=== PATIENT | female | born 1980 ===

== ENCOUNTER 2017-11-03 15:49 | Emergency (ER) | payer SELFPAY ==
--- NOTE | 2017-11-03 16:38 | C.PDOC ---
History Of Present Illness 37 yo female w/o significant PMHx come in for evaluation of intermittent episodes of headache for past 2 weeks. Pt reports, headache is along the crown of head extends down to neck area, aching, intermittent. Pt sts, takes Naproxen at home without improvement. Otherwise, pt denies recent illness, fever, chills , visual changes, focal deficits, denies worse headache of life, CP, SOB, dyspnea, diaphoresis, palpitation, abd. pain, V/D, back pain, UTI sx, denies weakness, sensory or vascular deficits to B/L UEs. Ambulate to Ed for evaluation , not ikn any apparent distress Time Seen by Provider: 11/03/17 16:25 Chief Complaint (Nursing): Headache History Per: Patient Onset/Duration Of Symptoms: Intermittent Episodes Past Medical History Reviewed: Historical Data, Nursing Documentation, Vital Signs Vital Signs: Last Vital Signs Temp 98.2 F 11/03/17 16:10 Pulse 110 H 11/03/17 16:10 Resp 20 11/03/17 16:10 BP 152/91 H 11/03/17 16:10 Pulse Ox 100 11/03/17 17:46 - Medical History PMH: No Chronic Diseases Surgical History: No Surg Hx Family History: States: No Known Family Hx - Social History Hx Tobacco Use: No Hx Alcohol Use: No Hx Substance Use: No - Immunization History Hx Tetanus Toxoid Vaccination: No Hx Influenza Vaccination: No Hx Pneumococcal Vaccination: No Review Of Systems Except As Marked, All Systems Reviewed And Found Negative. Constitutional: Negative for: Fever, Chills, Malaise ENT: Negative for: Ear Discharge, Nose Discharge, Nose Congestion, Throat Pain, Throat Swelling Cardiovascular: Negative for: Chest Pain, Palpitations, Light Headedness Respiratory: Negative for: Cough, Shortness of Breath, Wheezing Gastrointestinal: Negative for: Nausea, Vomiting, Abdominal Pain, Diarrhea Genitourinary: Negative for: Dysuria, Incontinence Musculoskeletal: Negative for: Neck Pain Neurological: Positive for: Headache. Negative for: Weakness, Numbness, Altered Mental Status, Dizziness Physical Exam - Physical Exam Appears: Well, Non-toxic, No Acute Distress Skin: Normal Color, Warm, Dry, No Rash Head: Normacephalic Eye(s): bilateral: PERRL, EOMI Ear(s): Bilateral: Normal Nose: No Flaring, No Discharge Oral Mucosa: Moist, No Drooling Tongue: Normal Appearing Lips: Normal Appearing Throat: No Erythema, No Exudate, No Drooling Neck: Trachea Midline, Supple Cardiovascular: Rhythm Regular, No Murmur, No JVD Respiratory: No Decreased Breath Sounds, No Accessory Muscle Use, No Stridor, No Wheezing Gastrointestinal/Abdominal: Soft, No Tenderness, No Distention, No Guarding Back: No CVA Tenderness, No Vertebral Tenderness Extremity: Normal ROM, No Pedal Edema, No Deformity, No Swelling Neurological/Psych: Oriented x3, Normal Speech, Normal Motor, Normal Sensation, Normal Reflexes ED Course And Treatment - Laboratory Results Result Diagrams: 11/03/17 17:03 11/03/17 17:03 O2 Sat by Pulse Oximetry: 100 Pulse Ox Interpretation: Normal - CT Scan/US CT head w/o contrast Other Rad Studies (CT/US): Radiology Report Reviewed CT/US Interpretation: IMPRESSION: No intracranial mass, hemorrhage or evidence of acute infarct. Chronic sphenoid sinusitis. No additional abnormality. Progress Note: On re-evaluation, pt reports moderate improveemnt in [facility]. Pt is afebrile, hemodynamicaly stable. Non-toxic. Ambulatory in ED with baseline gait. [id number]%. Neck: Supple, (-) JVD, (-) carotid bruits B/L. Lungs: CTA B/L, BS equal B/L. Abd: benign, (-) guarding, (-) rebound. back: (- ) CVA tenderness. Neurologicaly intact. Blood work review, mild leukocytosis noted with left shift. UA- jose, preg (-). CT head w/o contrast- no acute findings. Pt has clinical findings c/w ehadache r/o sinus headache. Pt advised. ref. to f/u with PMD in 2 -3 days for re-eval. Return to ED if any worsening or new changes. Disposition Counseled Patient/Family Regarding: Studies Performed, Diagnosis, Need For Followup, Rx Given - Disposition Referrals: Andrea Shen MD [Non-Staff] - Disposition: HOME/ ROUTINE Disposition Time: 18:05 Condition: STABLE Additional Instructions: Encourage fluids Take medication as prescribed Follow up with PMD, Neurologist in 2-3 days for re-evaluation. return to ED if any worsening or new changes. Prescriptions: Acetaminophen/Butalbital/Caf [Fioricet] 1 tab PO TID PRN #10 tab PRN Reason: Headache Amoxicillin/Clavulanate [Augmentin 875 MG-125 MG] 1 tab PO BID #14 tab Prednisone [Deltasone] 40 mg PO DAILY #6 tablet Instructions: Sinus Headache (DC) Forms: [employer] (Comoran) Print Language: KYRGYZ - Clinical Impression Clinical Impression: Sinusitis, Headache
[2017-11-03] MEDS ORDERED: DiphenhydrAMINE 50 mg/ml Inj IVP STA (16:39)
[2017-11-03] MEDS ORDERED: DiphenhydrAMINE 50 mg/ml Inj ONE (17:05)
[2017-11-03 17:09] LABS: BASO # 0.1 K/uL (0.0-0.2); BASO % 0.4 % (0.0-2.0); EOS # 0.1 K/uL (0.0-0.7); EOS % 0.8 % (0.0-4.0); HEMOGLOBIN 14.3 g/dL (11.0-16.0); LYMPH # 2.6 K/uL (1.0-4.3); LYMPH % 17.8 % (20.0-40.0); MEAN CELL VOLUME 80.4 fL (81.0-99.0); MEAN CORPUSCULAR HEMOGLOBIN 27.4 pg (27.0-31.0); MEAN CORPUSCULAR HGB CONC 34.1 g/dL (33.0-37.0); MEAN PLATELET VOLUME 9.8 fL (7.2-11.7); MONO # 0.9 K/uL (0.0-0.8); MONO % 5.9 % (0.0-10.0); NEUT # 10.9 K/uL (1.8-7.0); NEUT % 75.1 % (50.0-75.0); NRBC % 0.1 % (0.0-2.0); RBC 5.21 Mil/uL (3.80-5.20); RED CELL DISTRIBUTION WIDTH 14.5 % (11.5-14.5); WHITE BLOOD COUNT 14.5 K/uL (4.8-10.8)
[2017-11-03 17:11] LABS: HCG,QUALITATIVE URINE NEGATIVE (NEGATIVE)
[2017-11-03 17:20] LABS: BLOOD UREA NITROGEN 12 mg/dL (7-17); CALCIUM 8.5 mg/dl (8.6-10.4); GFR AFRICAN-AMERICAN > 60; GFR NON-AFRICAN AMERICAN > 60; SQUAMOUS EPITHIAL 3 /hpf (0-5); URINE BILIRUBIN NEGATIVE (NEGATIVE); URINE BLOOD NEGATIVE (NEGATIVE); URINE CLARITY Hazy (Clear); URINE COLOR Amber (YELLOW); URINE GLUCOSE (UA) NORMAL (Normal); URINE LEUKOCYTE ESTERASE NEG Leu/uL (Negative); URINE PROTEIN 1+ mg/dL (NEGATIVE)
--- NOTE | 2017-11-03 17:40 | CT ---
PROCEDURE: CT HEAD WITHOUT CONTRAST. HISTORY: headache COMPARISON: None available. TECHNIQUE: Axial computed tomography images were obtained through the head/brain without intravenous contrast. Radiation dose: Total exam DLP = 857.99 mGy-cm. This CT exam was performed using one or more of the following dose reduction techniques: Automated exposure control, adjustment of the mA and/or kV according to patient size, and/or use of iterative reconstruction technique. FINDINGS: HEMORRHAGE: No intracranial hemorrhage. BRAIN: No mass effect or edema. No atrophy or chronic microvascular ischemic changes. VENTRICLES: Unremarkable. No hydrocephalus. CALVARIUM: Unremarkable. PARANASAL SINUSES: Chronic sphenoid sinusitis. MASTOID AIR CELLS: Unremarkable as visualized. No inflammatory changes. OTHER FINDINGS: None. IMPRESSION: No intracranial mass, hemorrhage or evidence of acute infarct. Chronic sphenoid sinusitis. No additional abnormality.
[2017-11-03] MEDS ORDERED: Amoxicillin-Clav 875-125 mg Tab PO STA (18:00)
[2017-11-03] MEDS ORDERED: Amoxicillin-Clav 875-125 mg Tab PO ONE (18:17)
[2017-11-03 18:37] VITALS: BP 127/80; PULSE 90; RESP 18; TEMP 97.9; O2SAT 98
== END 2017-11-03 18:39 | disposition home or self-care (01) ==
LOC: C.ER 15:49
DX: J32.9 Chronic sinusitis, unspecified (principal); R51 Headache
CPT/HCPCS: 70450; 80048; 81001; 84703; 85025; 96374; 96375; 99284; J1100; J1200; J1885; J2405

== ENCOUNTER 2018-01-03 09:50 | Emergency (ER) | payer OTHER ==
[2018-01-03 10:06] VITALS: BP 145/95; PULSE 82; RESP 16; TEMP 98.3; O2SAT 100
--- NOTE | 2018-01-03 10:18 | C.PDOC ---
History Of Present Illness 37 year old female presents to the emergency department with complaints of general ENT symptoms. Patient reports congested ears and nose, rhinorrhea, dry mouth, Patient denies fever. Time Seen by Provider: 01/03/18 10:07 Chief Complaint (Nursing): ENT Problem History Per: Patient History/Exam Limitations: None Current Symptoms Are (Timing): Still Present Quality (Ear): Other (congestion) Past Medical History Reviewed: Historical Data, Nursing Documentation, Vital Signs Vital Signs: Last Vital Signs Temp 98.3 F 01/03/18 10:03 Pulse 82 01/03/18 10:03 Resp 16 01/03/18 10:03 BP 145/95 H 01/03/18 10:03 Pulse Ox 100 01/03/18 13:40 - Medical History PMH: No Chronic Diseases Surgical History: No Surg Hx Family History: States: No Known Family Hx - Social History Hx Tobacco Use: No Hx Alcohol Use: No Hx Substance Use: No - Immunization History Hx Tetanus Toxoid Vaccination: No Hx Influenza Vaccination: No Hx Pneumococcal Vaccination: No Review Of Systems Except As Marked, All Systems Reviewed And Found Negative. Constitutional: Negative for: Fever ENT: Positive for: Nose Congestion, Other (ear congestion, mouth dry, tongue sores) Physical Exam - Physical Exam Appears: Non-toxic, No Acute Distress Skin: Warm, Dry Ear(s): Bilateral: Normal Oral Mucosa: Moist Throat: Normal, No Erythema, No Exudate Cardiovascular: Rhythm Regular Respiratory: Normal Breath Sounds Neurological/Psych: Oriented x3, Normal Speech, Normal Cognition ED Course And Treatment O2 Sat by Pulse Oximetry: 100 (RA) Pulse Ox Interpretation: Normal Medical Decision Making Medical Decision Making: suspsect seasonal allergies vs viral syndrome. - Plan: Claritin 10mg PO lungs cta pt speaking full sentences in nad. stable for dc Disposition - Disposition Referrals: [facility] [Outside] [facility] [Outside] [facility] [Outside] Disposition: HOME/ ROUTINE Disposition Time: 10:00 Condition: STABLE Additional Instructions: follow up with your doctor. return to er with worsening symptoms or concerns. Prescriptions: Fluticasone Propionate [Flonase] 1 spr NS DAILY #1 bottle Loratadine [Claritin] 10 mg PO DAILY PRN #10 tab PRN Reason: Allergy Symptoms Instructions: Seasonal Allergies in Adults, Cough, Runny Nose, and the Common Cold Forms: [employer] ([place]orese) Print Language: [place] - Clinical Impression Clinical Impression: Seasonal allergies - Scribe Statement The provider has reviewed the documentation as recorded by the Scribe (Rakesh Ramires) Provider Attestation: All medical record entries made by the Scribe were at my direction and personally dictated by me. I have reviewed the chart and agree that the record accurately reflects my personal performance of the history, physical exam, medical decision making, and the department course for this patient. I have also personally directed, reviewed, and agree with the discharge instructions and disposition.
== END 2018-01-03 10:44 | disposition home or self-care (01) ==
LOC: C.ER 09:50
DX: J30.2 Other seasonal allergic rhinitis (principal)

== ENCOUNTER 2018-03-19 18:47 | Emergency (ER) | payer OTHER ==
[2018-03-19 18:47] VITALS: BMI 36.5
[2018-03-19 18:59] VITALS: O2SAT 99
[2018-03-19] MEDS ORDERED: Sodium Chloride 0.9% 1,000 ML IV ONE (19:13)
[2018-03-19] MEDS ORDERED: Iohexol 240 (50 ml) PO ONE (19:14)
--- NOTE | 2018-03-19 19:16 | C.PDOC ---
History Of Present Illness 38 y/o female presents to ED for complaints of generalized abdominal pain that began a week ago. Denies , symptoms of dysuria, constipation, nausea, or vomiting. [facility] February 22, 2018. Chief Complaint (Nursing): Abdominal Pain History Per: Patient History/Exam Limitations: no limitations Onset/Duration Of Symptoms: Days (7) Current Symptoms Are (Timing): Still Present Location Of Pain/Discomfort: Diffuse Radiation Of Pain To:: None Quality Of Discomfort: Unable To Describe Associated Symptoms: denies: Fever, Chills, Nausea, Vomiting, Diarrhea, Urinary Symptoms Exacerbating Factors: None Alleviating Factors: None Last Bowel Movement: Today Recent travel outside of the [place]: No Abnormal Vaginal Bleeding: No Last Menstral Period: 02/22 Past Medical History Reviewed: Historical Data, Nursing Documentation, Vital Signs Vital Signs: Last Vital Signs Temp 99 F 03/19/18 18:56 Pulse 97 H 03/19/18 18:56 Resp 18 03/19/18 18:56 BP 151/89 H 03/19/18 18:56 Pulse Ox 99 03/19/18 22:07 - Medical History PMH: No Chronic Diseases Surgical History: No Surg Hx Family History: States: No Known Family Hx - Social History Hx Tobacco Use: No Hx Alcohol Use: No Hx Substance Use: No - Immunization History Hx Tetanus Toxoid Vaccination: No Hx Influenza Vaccination: No Hx Pneumococcal Vaccination: No Review Of Systems Constitutional: Negative for: Fever, Chills Cardiovascular: Negative for: Chest Pain Gastrointestinal: Positive for: Abdominal Pain. Negative for: Nausea, Vomiting , Diarrhea, Constipation Genitourinary: Negative for: Dysuria, Vaginal Bleeding Skin: Negative for: Rash Neurological: Negative for: Weakness, Numbness Physical Exam - Physical Exam Appears: Non-toxic, No Acute Distress Skin: Normal Color, Warm, Dry Head: Atraumatic, Normacephalic Eye(s): bilateral: Normal Inspection, PERRL Oral Mucosa: Moist Neck: Supple Chest: Symmetrical, No Tenderness Cardiovascular: Rhythm Regular, No Murmur Respiratory: Normal Breath Sounds, No Decreased Breath Sounds, No Rales, No Rhonchi, No Wheezing Gastrointestinal/Abdominal: Soft, Tenderness (Epigastric and mild in LLQ), No Distention, No Guarding, No Rebound Back: No CVA Tenderness Extremity: Normal ROM, No Tenderness, No Deformity Extremity: Bilateral: Atraumatic, Normal Color And Temperature, Normal ROM Neurological/Psych: Oriented x3, Normal Speech Gait: Steady ED Course And Treatment - Laboratory Results Result Diagrams: 03/19/18 19:35 03/19/18 19:35 O2 Sat by Pulse Oximetry: 99 (RA) Pulse Ox Interpretation: Normal - CT Scan/US CT Abdomen&Pelvis Other Rad Studies (CT/US): Read By Radiologist, Radiology Report Reviewed CT/US Interpretation: EXAM: CT Abdomen and Pelvis With Intravenous Contrast. CLINICAL HISTORY: 38 years old, female; Pain; Abdominal pain; Periumbilical; Additional info: Generalized abd pain. TECHNIQUE: Axial computed tomography images of the abdomen and pelvis with intravenous contrast. All CT. scans at this facility use at least one of these dose optimization techniques: automated exposure. control; mA and/or kV adjustment per patient size (includes targeted exams where dose is matched to. clinical indication); or iterative reconstruction. Coronal and sagittal reformatted images were created and reviewed. CONTRAST: 100 mL of visipaque 320 administered intravenously. COMPARISON: No relevant prior studies available. FINDINGS: Lung bases: Small subpleural nodule right middle lobe 4 mm.There is a diffuse decrease in hepatic. parenchymal density, consistent with fatty infiltration. ABDOMEN: Liver: There are no focal liver lesions present. Gallbladder and bile ducts: Unremarkable. No calcified stones. No ductal dilation. No significant. wall thickening. Pancreas: Unremarkable. No mass. No ductal dilation. Spleen: Unremarkable. No splenomegaly. Adrenals: Unremarkable. No mass. Kidneys and ureters: Unremarkable. No solid mass. No hydronephrosis. Stomach and bowel: Bowel loops appear within normal limits, no signs of wall thickening, mucosal. edema, or bowel distention. PELVIS: Appendix: A normal appendix is identified. Bladder: Unremarkable. No mass. Reproductive: Unremarkable as visualized. ABDOMEN and PELVIS: Intraperitoneal space: Unremarkable. No free air. No significant fluid collection. Bones/joints: No acute fracture. No dislocation. Soft tissues: Small fat-containing paraumbilical hernia is present. Vasculature: Unremarkable. No abdominal aortic aneurysm. Lymph nodes : Unremarkable. No enlarged lymph nodes. IMPRESSION: No acute findings or significant abnormalities are noted within the abdomen and pelvis. Small subpleural nodule right middle lobe 4 mm size. For lung nodules 4 mm or smaller in size, if the patient is considered high risk for lung cancer or. metastatic disease, follow-up CT in 12 months is recommended. If the patient is considered low risk. and under age 35, no follow-up is needed. Medical Decision Making Medical Decision Making: Administered Toradol and IV fluids. Ordered CT abd& Pelvis, blood work, and urinalysis. Disposition Counseled Patient/Family Regarding: Diagnosis - Disposition Referrals: [facility] [Outside] Disposition: HOME/ ROUTINE Disposition Time: 22:04 Condition: STABLE Prescriptions: Dicyclomine [Dicyclomine HCl] 10 mg PO Q6 #14 cap Instructions: Acute Abdomen (Belly Pain), Umbilical Hernia, Adult Forms: [employer] (Belizean), Gen Discharge Inst Greenlandic Print Language: NAMIBIAN - POA Present On Arrival: None - Clinical Impression Clinical Impression: Abdominal pain, Paraumbilical hernia - Scribe Statement The provider has reviewed the documentation as recorded by the Scribe Padmini Jeffers All medical record entries made by the Scribe were at my direction and personally dictated by me. I have reviewed the chart and agree that the record accurately reflects my personal performance of the history, physical exam, medical decision making, and the department course for this patient. I have also personally directed, reviewed, and agree with the discharge instructions and disposition.
[2018-03-19] MEDS ORDERED: Sodium Chloride 0.9% 1,000 ML ONE (19:38)
[2018-03-19] MEDS ORDERED: Iohexol 240 (50 ml) ONE (19:39)
[2018-03-19 19:47] LABS: BASO % 0.4 % (0.0-2.0); EOS # 0.1 K/uL (0.0-0.7); HEMOGLOBIN 13.5 g/dL (11.0-16.0); LYMPH # 2.1 K/uL (1.0-4.3); LYMPH % 20.5 % (20.0-40.0); MEAN CELL VOLUME 80.1 fL (81.0-99.0); MEAN CORPUSCULAR HEMOGLOBIN 27.6 pg (27.0-31.0); MEAN CORPUSCULAR HGB CONC 34.4 g/dL (33.0-37.0); MEAN PLATELET VOLUME 10.1 fL (7.2-11.7); MONO # 0.7 K/uL (0.0-0.8); MONO % 6.5 % (0.0-10.0); NEUT # 7.5 K/uL (1.8-7.0); NEUT % 71.6 % (50.0-75.0); NRBC % 0.5 % (0.0-2.0); RBC 4.89 Mil/uL (3.80-5.20); RED CELL DISTRIBUTION WIDTH 13.8 % (11.5-14.5); WHITE BLOOD COUNT 10.4 K/uL (4.8-10.8)
[2018-03-19 19:56] LABS: SQUAMOUS EPITHIAL 2 /hpf (0-5); URINE BILIRUBIN NEGATIVE (NEGATIVE); URINE BLOOD NEGATIVE (NEGATIVE); URINE CLARITY Clear (Clear); URINE COLOR Yellow (YELLOW); URINE GLUCOSE (UA) NORMAL (Normal); URINE LEUKOCYTE ESTERASE NEG Leu/uL (Negative); URINE PROTEIN NEGATIVE (NEGATIVE)
[2018-03-19 19:58] LABS: HCG,QUALITATIVE URINE NEGATIVE (NEGATIVE)
[2018-03-19 20:19] LABS: ALB/GLOB RATIO 1.3 (1.0-2.1); ALBUMIN 4.5 g/dL (3.5-5.0); ALT/SGPT 40 U/L (9-52); AST/SGOT 29 U/L (14-36); BLOOD UREA NITROGEN 8 mg/dL (7-17); CALCIUM 9.3 mg/dl (8.6-10.4); GFR AFRICAN-AMERICAN > 60; GFR NON-AFRICAN AMERICAN > 60; LIPASE 61 U/L (23-300)
[2018-03-19 22:29] VITALS: BP 148/70; PULSE 88; RESP 20; TEMP 98.8
--- NOTE | 2018-03-20 09:00 | CT ---
Date of service: 03/19/2018 PROCEDURE: CT Abdomen and Pelvis with contrast HISTORY: generalized abd pain COMPARISON: None. TECHNIQUE: Contrast dose: Radiation dose: Total exam DLP = mGy-cm. This CT exam was performed using one or more of the following dose reduction techniques: Automated exposure control, adjustment of the mA and/or kV according to patient size, and/or use of iterative reconstruction technique. FINDINGS: LOWER THORAX: 4 mm subpleural nodule in the right middle lobe.. LIVER: Unremarkable. No gross lesion or ductal dilatation. GALLBLADDER AND BILE DUCTS: Unremarkable. PANCREAS: Unremarkable. No gross lesion or ductal dilatation. SPLEEN: Unremarkable. ADRENALS: Unremarkable. No mass. KIDNEYS AND URETERS: Unremarkable. No hydronephrosis. No solid mass. VASCULATURE: Unremarkable. No aortic aneurysm. BOWEL: Unremarkable. No obstruction. No gross mural thickening. APPENDIX: Normal appendix. PERITONEUM: Unremarkable. No free fluid. No free air. LYMPH NODES: Unremarkable. No enlarged lymph nodes. BLADDER: Unremarkable. REPRODUCTIVE: Unremarkable. BONES: No acute fracture. OTHER FINDINGS: None. IMPRESSION: 4 mm subpleural nodule in the right middle lobe..
== END 2018-03-19 22:22 | disposition home or self-care (01) ==
LOC: C.ER 18:47
DX: K42.9 Umbilical hernia without obstruction or gangrene (principal); R10.84 Generalized abdominal pain
CPT/HCPCS: 74177; 80053; 81001; 83690; 84703; 85025; 96361; 96374; 99284; J1885; J7030